=== PATIENT | male | born 1960 | race Caucasian/White ===

== ENCOUNTER 2017-01-24 10:27 | Emergency (ER) | payer SELFPAY ==
[2017-01-24] MEDS ORDERED: KETOROLAC TROMETHAMINE INJ/PF 30 MG/1 ML SDV IV ONE (11:05)
[2017-01-24] MEDS ORDERED: METHYLPREDNISOLONE INJ 125 MG/2 ML SDV IV ONE (11:06)
--- NOTE | 2017-01-24 11:12 | ER Document Report ---
ED Neck/Back Problem - General Chief Complaint: Low Back Pain Stated Complaint: BACK PAIN Time Seen by Provider: 01/24/17 11:05 Mode of Arrival: Medic Information source: Patient Notes: This 56-year-old male patient comes emergency room by EMS for acute exacerbation of chronic low back pain. He reports he has had low back pain for the past 7 years, it is been worse the past 2 years. He states any sort of sudden movement or twisting will set it off. He usually goes to the emergency room where he gets pain medication. He has never been radiologically studied or workup for this problem. He stumbled on Friday and it worsened his back. He did try to work on Friday but has been unable to do anything. His boss told him he would have to come get help, that he could not come back to work. He states he spent several hours yesterday filling out forms somewhere to try to get assistance as he has no insurance. He was told that if he calls an ambulance he is more likely to be seen and have his problem more thoroughly evaluated. He does report numbness and pain in both lower extremities circumferentially from the knees down. He states his right foot feels like it is on fire. He occasionally gets similar sensations from the hips down. He does note that when it turns cold, usually less than 30 the pain gets much worse, and when the cold front is coming in and rain is coming the pain gets worse. There is no bowel or bladder dysfunction problems reported. TRAVEL OUTSIDE OF THE [place] IN LAST 30 DAYS: No - Related Data Allergies/Adverse Reactions: No Known Allergies Allergy (Verified 01/24/17 10:29) Past Medical History - General Information source: Patient - Social History Smoking Status: Current Every Day Smoker Cigarette use (# per day): Yes - 1.5 PPD Chew tobacco use (# tins/day): No Smoking Education Provided: No Frequency of alcohol use: Occasional Drug Abuse: None Occupation: construction Family History: Reviewed & Not Pertinent Patient has suicidal ideation: No - Medical History Medical History: Negative Surgical Hx: Negative Review of Systems - Review of Systems Constitutional: No symptoms reported EENT: No symptoms reported Cardiovascular: No symptoms reported Respiratory: No symptoms reported Gastrointestinal: No symptoms reported Genitourinary: No symptoms reported Musculoskeletal: See HPI, Back pain - Chronic low back pain 7 years with occasional exacerbations Skin: No symptoms reported Hematologic/Lymphatic: No symptoms reported Neurological/Psychological: See HPI Physical Exam - Vital signs Vitals: Temp Pulse Resp BP Pulse Ox 97.8 F 94 20 132/76 H 100 01/24/17 10:01/24/17 10:29 01/24/17 10:29 01/24/17 10:29 01/24/17 10:29 Interpretation: Normal - General General appearance: Appears well, Alert In distress: Mild - HEENT Head: Normocephalic, Atraumatic Eyes: Normal Pupils: PERRL Neck: Normal - Respiratory Respiratory status: No respiratory distress - Cardiovascular Rhythm: Regular - Abdominal Inspection: Normal - Back Back: Tender - Very tender to palpate the lumbar paravertebral muscles and soft tissues. - Extremities General upper extremity: Normal inspection General lower extremity: Normal inspection - Neurological Neuro grossly intact: Yes - Psychological Associated symptoms: Normal affect, Normal mood - Skin Skin Temperature: Warm Skin Moisture: Dry Skin Color: Normal Course - Vital Signs Vital signs: Temp Pulse Resp BP Pulse Ox 97.8 F 94 20 132/76 H 100 01/24/17 10:29 01/24/17 10:29 01/24/17 10:29 01/24/17 10:29 01/24/17 10:29 - Diagnostic Test Radiology reviewed: Reports reviewed - MRI of the lumbar spine shows some mild chronic degenerative changes. There is no significant spinal stenosis, no no nerve root compression. Discharge - Discharge Clinical Impression: Acute exacerbation of chronic low back pain Acute lumbar back pain Qualifiers: Back pain laterality: bilateral Sciatica presence: without sciatica Qualified Code(s): M54.5 - Low back pain Condition: Stable Disposition: HOME, SELF-CARE Additional Instructions: Low Back Pain: Three out of every four people will have an episode of disabling back pain during their lifetime. Most commonly the pain is due to straining of the muscles and ligaments in the low back. Usual treatment includes: (1) Rest on a firm surface. Avoid lying on your stomach. (2) Ice pack the painful area. After a few days, gentle heat may be used intermittently to relax the area, or ice packs can be continued. (3) Medication may be needed -- muscle relaxers and antiinflammatory medicines are commonly used. (4) As the back improves, exercises are prescribed to strengthen the back and abdominal muscles. Your doctor will advise you on the proper care for your back at each stage in your recovery. You may be better in a few days -- or healing may take several weeks. //////////////////////////////////////////////////////////////////////////////// //////////////////////////////////////////////////////////////////////////////// / Your MRI today showed only mild chronic degenerative changes. There was no sign of nerve root impingement. This relatively normal MRI for your age, coupled with physical exam which clearly shows the pain to be muscular and soft tissue in origin, suggests that the proper management for your exacerbations of chronic low back pain would be muscle relaxers, anti-inflammatory medications, and you may benefit from physical therapy or home care manager. RETURN TO THE EMERGENCY ROOM IF ANY NEW OR WORSENING SYMPTOMS. Prescriptions: Cyclobenzaprine HCl [Flexeril 5 mg Tablet] 5 mg PO TID PRN #15 tablet PRN Reason: Naproxen [Naprosyn] 500 mg PO BID #20 tablet
--- NOTE | 2017-01-24 12:46 | RADIOLOGY REPORT (SQ) ---
EXAM DESCRIPTION: SKULL 1-3 VIEWS COMPLETED DATE/TIME: 01/24/2017 12:09 pm REASON FOR STUDY: MEANS AND LATERAL FOREIGN BODY EVAL FOR MRI COMPARISON: None. NUMBER OF VIEWS: Two view. TECHNIQUE: Images of the facial bones acquired. LIMITATIONS: None. FINDINGS: ORBITS: No fracture. No foreign body. SINUSES: There may be mild mucosal thickening in the left maxillary sinus. FACIAL BONES: No fracture. OTHER: No radiopaque foreign body is seen. IMPRESSION: No radiopaque foreign body. Possible mild left maxillary sinus disease. TECHNICAL DOCUMENTATION: JOB ID: [id number] [employer]- All Rights Reserved
--- NOTE | 2017-01-24 13:32 | RADIOLOGY REPORT (SQ) ---
EXAM DESCRIPTION: MRI LUMBAR SPINE WITHOUT COMPLETED DATE/TIME: 01/24/2017 1:19 pm REASON FOR STUDY: acute exacerbation chronic LBP w/ radicular sx's COMPARISON: None. TECHNIQUE: Sagittal and Axial imaging includes T1, T2, STIR and gradient echo sequences. Coronal T2/ HASTE imaging. LIMITATIONS: None. FINDINGS: VISUALIZED UPPER ABDOMEN: Limited evaluation. No acute or suspicious findings suggested. SEGMENTATION: No transitional anatomy. The lowest well-developed disc space is labeled L5-S1. ALIGNMENT: Anatomic. VERTEBRAE: Intact. BONE MARROW: No fracture. No suspicious bone lesion. Mild chronic appearing reactive endplate he es at the L4-5 level. DISC SIGNAL: L4-5 and L5-S1 mild diminished signal. POSTERIOR ELEMENTS: Generally intact. No pars defect evident. HARDWARE: None in the spine. CORD AND CONUS: Normal in size and signal intensity. Conus at the appropriate level. SOFT TISSUES: No aortic aneurysm seen. No bulky retroperitoneal adenopathy or mass. No paraspinal mas s or fluid. L1-L2: No significant spinal stenosis or exit foraminal stenosis. L2-L3: No significant spinal stenosis or exit foraminal stenosis. L3-L4: Mild disc bulging. Left foraminal and lateral annular fissure may be present. No significant central narrowing. Relatively mild foraminal encroachment, left greater than right. L4-L5: Mild posterior ligament overgrowth with facet arthropathy. Mild disc bulging. Slight central canal encroachment but no high-grade central stenosis. Fairly mild bilateral foraminal narrowing, l eft greater than right. L5-S1: Mild facet overgrowth. No central stenosis. Relatively mild bilateral foraminal narrowing. LOWER THORACIC: Incompletely imaged. No stenosis seen. SACRUM: Visualized upper sacrum intact. OTHER: No other significant findings. IMPRESSION: 1. Fairly mild lumbar spondylosis as described. No suggestion of significant spinal kalia nosis. No large disc bulges or hernias. No fracture or bone lesion or spinal malalignment. TECHNICAL DOCUMENTATION: JOB ID: [id number] [employer]- All Rights Reserved
[2017-01-24 14:21] VITALS: BP 120/72
== END 2017-01-24 14:21 | disposition home or self-care (01) ==
LOC: ER 10:27
DX: M54.5 Low back pain (principal); G89.29 Other chronic pain; F17.210 Nicotine dependence, cigarettes, uncomplicated
CPT/HCPCS: 99284; 96374; 96375; 72148; 70250; J2930; J1885

== ENCOUNTER 2017-08-30 16:56 | Emergency (ER) | payer OTHER ==
[2017-08-30] MEDS ORDERED: IBUPROFEN 800 MG TABLET PO ONE (18:03)
--- NOTE | 2017-08-30 19:17 | ER Document Report ---
ED Skin Rash/Insect Bite/Abscs - General Chief Complaint: Abscess Stated Complaint: POSSIBLE ABSCESS ON BACK Time Seen by Provider: 08/30/17 18:31 Mode of Arrival: Ambulatory Information source: Patient Notes: 57-year-old male presents to ED for abscess to his back. He states he noticed it about a week ago and it is gotten larger since then. He states he has some pain but it is not severe and he decided to come in and get it taken care of before gets severe. Patient is alert and oriented respirations regular and unlabored speaks in full sentences and walks with a even steady gait. Patient is in no acute distress at this time. TRAVEL OUTSIDE OF THE [place] IN LAST 30 DAYS: No - HPI Patient complains to provider of: Tender/swollen area Onset: Last week Onset/Duration: Gradual, Worse Quality of pain: Sharp Severity: Moderate Pain Level: 3 Skin Character: Abscess Quality of rash: Painful Identify cause: No Exacerbated by: Denies Relieved by: Denies Similar symptoms previously: No Recently seen / treated by doctor: No - Related Data Allergies/Adverse Reactions: No Known Allergies Allergy (Verified 08/30/17 16:57) Past Medical History - General Information source: Patient - Social History Smoking Status: Current Every Day Smoker Cigarette use (# per day): Yes - 2ppd Chew tobacco use (# tins/day): No Smoking Education Provided: Yes - 4min Frequency of alcohol use: Occasional Drug Abuse: Marijuana, Prescription drugs - percocet Lives with: Friend Family History: Reviewed & Not Pertinent Patient has suicidal ideation: No Patient has homicidal ideation: No - Past Medical History Cardiac Medical History: Reports: None Pulmonary Medical History: Reports: None EENT Medical History: Reports: None Neurological Medical History: Reports: None Endocrine Medical History: Reports: None Renal/ Medical History: Reports: None Malignancy Medical History: Reports None GI Medical History: Reports: None Musculoskeletal Medical History: Reports Hx Arthritis, Reports Hx Musculoskeletal Trauma Skin Medical History: Reports Hx Cellulitis Psychiatric Medical History: Reports: None Traumatic Medical History: Reports: Hx Fractures Infectious Medical History: Reports: None - Foot Surgical Hx: Negative Past Surgical History: Reports: None - Immunizations Immunizations up to date: Yes Review of Systems - Review of Systems Constitutional: No symptoms reported EENT: No symptoms reported Cardiovascular: No symptoms reported Respiratory: No symptoms reported Gastrointestinal: No symptoms reported Genitourinary: No symptoms reported Male Genitourinary: No symptoms reported Musculoskeletal: No symptoms reported Skin: Other - Abscess to the left mid back Hematologic/Lymphatic: No symptoms reported Neurological/Psychological: No symptoms reported -: Yes All other systems reviewed and negative Physical Exam - Vital signs Vitals: Temp Pulse Resp BP Pulse Ox 97.8 F 99 16 133/73 H 87 L 08/30/17 17:00 08/30/17 17:00 08/30/17 17:00 08/30/17 17:00 08/30/17 17:00 Interpretation: Normal - General General appearance: Appears well, Alert - HEENT Head: Normocephalic, Atraumatic Eyes: Normal Pupils: PERRL - Respiratory Respiratory status: No respiratory distress Chest status: Nontender Breath sounds: Normal Chest palpation: Normal - Cardiovascular Rhythm: Regular Heart sounds: Normal auscultation Murmur: No - Abdominal Inspection: Normal Distension: No distension Bowel sounds: Normal Tenderness: Nontender Organomegaly: No organomegaly - Back Back: Normal, Nontender, Tender - Extremities General upper extremity: Normal inspection, Nontender, Normal color, Normal ROM , Normal temperature General lower extremity: Normal inspection, Nontender, Normal color, Normal ROM , Normal temperature, Normal weight bearing. No: Elliot's sign - Neurological Neuro grossly intact: Yes Cognition: Normal Orientation: AAOx4 Rhame Coma Scale Eye Opening: Spontaneous Luzma Coma Scale Verbal: Oriented Luzma Coma Scale Motor: Obeys Commands Luzma Coma Scale Total: 15 Speech: Normal Motor strength normal: LUE, RUE, LLE, RLE Sensory: Normal - Psychological Associated symptoms: Normal affect, Normal mood - Skin Skin Temperature: Warm Skin Moisture: Dry Skin Color: Normal Skin irregularity: Abscess - Left mid back Irregularity with: Swelling, Tenderness Course - Re-evaluation Re-evalutation: 08/31/17 02:51 Patient was treated with Bactrim and Keflex for his abscess to his back. Patient is encouraged to follow-up with his primary doctor or return to the ED for any increase in pain swelling or fever. Patient verbalized understanding of instructions before discharge. - Vital Signs Vital signs: Temp Pulse Resp BP Pulse Ox 97.7 F 61 20 142/84 H 96 08/30/17 19:26 08/30/17 19:26 08/30/17 19:26 08/30/17 19:26 08/30/17 19:26 Procedures - Incision and Drainage Left Back Time completed: 19:20 Type: Simple Anesthetic type: 1% Lidocaine mL's of anesthetic: 4 Blade size: 11 I&D procedure: Shurclens applied Incision Method: Incision made by scalpel Amount/type of drainage: large amount purulent Discharge - Discharge Clinical Impression: Abscess of back, except buttock Condition: Stable Disposition: HOME, SELF-CARE Additional Instructions: ABSCESS: You have an abscess (boil). This a pus-forming infection, usually due to staph. Some boils may be left to drain on their own, but most require lancing. From the time the tender lump first appears, it may be three or four days before the abscess is ready to alyce. Local heat and rest help at this stage of treatment. An antibiotic may prevent spread of the infection. Once the abscess is opened, packing may be placed into it. This is done so pus is not sealed inside by premature closure of the cavity. The packing will be removed at your follow-up visit or you may be advised to remove it yourself at home. Sometimes this packing must be replaced a few times during healing. The wound will heal with surprisingly little scar. Depending on the size and location of an abscess, healing can take one to four weeks. You may shower and wash the area around the incision site two or three times a day. Antibiotics may be prescribed, but are usually not necessary after an abscess has been drained. If you develop fever, chills, worsening pain, or increasing swelling in the area, call the doctor or return immediately. POST INCISION AND DRAINAGE: You have had an incision made to allow drainage of an abscess. The incision must remain open so that pus and debris can drain from the wound. If the abscess cavity is large, packing is placed. This keeps the tissues from collapsing and trapping pus inside, while the body shrinks the cavity. The packing may need to be replaced every day or two. The physician will instruct you on the packing. Keep a bulky dressing over the area. Replace it if it becomes saturated with blood or pus. Do not disturb the packing (if present). You may shower and cleanse the area with gentle soap and warm water two or three times a day. Local warmth may be soothing, and may promote faster healing. Return if you develop high fever or chills, or if you note spreading redness, increasing swelling, or increasing tenderness. CEPHALEXIN: The antibiotic you've been prescribed is a member of the cephalosporin class. This type of antibiotic covers a wide variety of infections, including those of the skin, lungs, and urinary tract. It's useful for staph infections. This antibiotic is slightly similar to the penicillin family. In rare cases , a person who is allergic to penicillin will also be allergic to this medication. If you have had a severe allergic reaction to penicillin, and have not taken this antibiotic since that time, notify your doctor. Antibiotics which cover many germs ("broad spectrum" antibiotics) are more likely to cause diarrhea or "yeast" infections. Women prone to vaginal yeast problems may suffer an attack after taking this antibiotic. In infants, oral thrush (white spots "stuck" on the cheek) or yeast diaper rash may result. See your doctor if these problems occur. Call at once if you develop itching, hives , shortness of breath, or lightheadedness. TRIMETHOPRIM-SULFA: You have been given a prescription for trimethoprim-sulfa (TMS, Septra, Bactrim). This is a combination antibiotic of the sulfa class, often used for urinary tract infections, middle ear infections, bronchitis, shigella intestinal infection, and Pneumocystis pneumonia. TMS is usually well-tolerated. Occasional side effects include nausea and decreased appetite. Septra is not recommended for infants less than two months of age. Do not take this medication if you have experienced severe side effects or allergy to sulfa medicine. You should stop this medicine at once and contact your physician if you develop any rash, joint pain, shortness of breath, bruising, or jaundice ( yellow color in the skin), or if you develop any other new or unusual symptoms. FOLLOW-UP CARE: Most simple abscesses will not require a follow up visit. If you had packing placed in the abscess, remove it as instructed by the physician. If you have been referred to a physician for follow-up care, call the physicians office for an appointment as you were instructed or within the next two days. If you experience worsening or a significant change in your symptoms, return to the Emergency Department at any time for re-evaluation. Prescriptions: Cephalexin Monohydrate [Keflex 500 mg Capsule] 500 mg PO QID #20 capsule Sulfamethoxazole/Trimethoprim [Bactrim Ds Tablet] 1 each PO BID #20 tablet Forms: Elevated Blood Pressure, Smoking Cessation Education
[2017-08-30 19:29] VITALS: BP 142/84
== END 2017-08-30 19:48 | disposition home or self-care (01) ==
LOC: ER 16:56
PROC: 0H96XZZ Drainage of Back Skin, External Approach (ICD-10-PCS; principal; 2017-08-30)
DX: L02.212 Cutaneous abscess of back [any part, except buttock and flank] (principal); F17.210 Nicotine dependence, cigarettes, uncomplicated
CPT/HCPCS: 87070; 87075; 87077; 87205; 99283